=== PATIENT | male | born 1970 | race Caucasian/White ===

== ENCOUNTER 2017-10-25 20:54 | Emergency (ER) | payer BC ==
[~2017-10-25] VITALS: Ht 185.4 cm; Wt 83.9 kg
[2017-10-25] MEDS ORDERED: GENVOYA (21:11)
[2017-10-25] MEDS ORDERED: LIDOCAINE HCL 1% 20 ML VIAL ONE (21:25)
[2017-10-25] MEDS ORDERED: SULFAMETH/TRIMETH 800/160 MG TABLET ONE (21:26)
[2017-10-25] MEDS ORDERED: CEFTRIAXONE 1 G VIAL ONE (21:26)
[2017-10-25] MEDS ORDERED: CEFTRIAXONE 1 G VIAL IM ONE (21:30)
[2017-10-25] MEDS ORDERED: SULFAMETH/TRIMETH 800/160 MG TABLET PO ONE (21:30)
--- NOTE | 2017-10-25 21:52 | NUR ---
MSE COMPLETED, MEDS ADMIN, NO ADNVERSE OR ALLERGIC REACTIONS NOTED TO ROCEFIN/BACTRIM. PT D/C'D HOME, ACI/RX X1 GIVEN. PT AMBULATED W/O DIFF/TOOK ALL BELONGINGS.
[2017-10-25 21:55] VITALS: BP 158/92
== END 2017-10-25 21:55 | disposition home or self-care (01) ==
LOC: ER 21:01
DX: L03.011 Cellulitis of right finger (principal); Z79.899 Other long term (current) drug therapy
CPT/HCPCS: A4663; J0696; J3490